=== PATIENT | male | born 1985 | race African-American/Black ===

== ENCOUNTER 2019-04-09 16:57 | Emergency (ER) | payer MEDICAID ==
[~2019-04-09] VITALS: Ht 177.8 cm; Wt 79.0 kg
[~2019-04-09 16:57] MED LIST: ALBU2TAB4
[2019-04-09] MEDS ORDERED: METHYLPREDNISOLONE SOD SUCC 125 MG/2 ML VIAL IV STA (18:41)
[2019-04-09] MEDS ORDERED: MAGNESIUM 2 G PREMIX 50 ML IV ONE (18:45)
[2019-04-09] MEDS ORDERED: IPRATROPIUM/ALBUTEROL 0.5-3(2.5)MG/3ML NEB HHN ONE (18:45)
[2019-04-09] MEDS ORDERED: LEVOFLOXACIN 750MG PREMIX 150 ML IV ONE (18:45)
[2019-04-09] MEDS ORDERED: KETOROLAC 30MG/ML VIAL IV ONE (19:45)
[2019-04-09 21:06] VITALS: BP 135/82
== END 2019-04-09 21:07 | disposition home or self-care (01) ==
LOC: ER 16:57
DX: J45.909 Unspecified asthma, uncomplicated (principal)
CPT/HCPCS: 71045; 94640; 96365; 96368; 96375; 99283; J1885; J1956; J2930; J3475; J7620; Z7610

== ENCOUNTER 2020-05-03 15:05 | Emergency (ER) | payer MEDICAID ==
[~2020-05-03] VITALS: Ht 175.3 cm; Wt 78.0 kg
[2020-05-03] MEDS ORDERED: ALBUTEROL (0.083%) 2.5MG/3ML NEB HHN ONE (17:00)
[2020-05-03 18:25] VITALS: BP 139/97
== END 2020-05-03 19:01 | disposition home or self-care (01) ==
LOC: ER 15:05
DX: J45.909 Unspecified asthma, uncomplicated (principal)
CPT/HCPCS: 71045; 94640; 99283; Z7610

== ENCOUNTER 2020-10-29 11:48 | Emergency (ER) | payer MEDICAID ==
[~2020-10-29] VITALS: Ht 172.7 cm; Wt 75.0 kg
[2020-10-29] MEDS ORDERED: PREDNISONE 20MG TABLET PO STA (12:03)
[2020-10-29] MEDS ORDERED: IPRATROPIUM BROMIDE (0.02%) 0.5MG/2.5ML NEB HHN STA (12:03)
[2020-10-29] MEDS ORDERED: ALBUTEROL (0.083%) 2.5MG/3ML NEB HHN STA (12:03)
[2020-10-29] MEDS ORDERED: P50 MT (13:17)
[2020-10-29] MEDS ORDERED: CYCL5TAB MT (13:17)
[2020-10-29] MEDS ORDERED: ALBU05 NEB (13:17)
[2020-10-29 13:34] VITALS: BP 151/87
== END 2020-10-29 13:36 | disposition home or self-care (01) ==
LOC: ER 11:48
DX: J45.901 Unspecified asthma with (acute) exacerbation (principal); R03.0 Elevated blood-pressure reading, without diagnosis of hypertension; Z92.89 Personal history of other medical treatment
CPT/HCPCS: 71045; 93005; 94640; 99283; J7512; Z7610

== ENCOUNTER 2020-11-02 19:09 | Emergency (ER) | payer MEDICAID ==
[~2020-11-02] VITALS: Ht 180.3 cm; Wt 84.0 kg
[~2020-11-02 19:09] MED LIST changes: +ALBU05 NEB; +CYCL5TAB MT; +P50 MT
[2020-11-02] MEDS: IPRATROPIUM BROMIDE (0.02%) 0.5MG/2.5ML NEB HHN STA (20:42)
[2020-11-02] MEDS: ALBUTEROL (0.083%) 2.5MG/3ML NEB HHN STA (20:43)
[2020-11-02] MEDS ORDERED: GUAI100G MT (20:46)
[2020-11-02 21:30] VITALS: BP 170/86
== END 2020-11-02 21:30 | disposition home or self-care (01) ==
LOC: ER 19:09
DX: J45.901 Unspecified asthma with (acute) exacerbation (principal); F17.200 Nicotine dependence, unspecified, uncomplicated; Z98.890 Other specified postprocedural states; Z79.899 Other long term (current) drug therapy
CPT/HCPCS: 94644; 99285; Z7610